=== PATIENT | male | born 1985 | race Two or more races ===

== ENCOUNTER 2020-08-12 11:33 | Emergency (ER) | payer SELFPAY ==
[~2020-08-12] VITALS: Ht 167.6 cm; Wt 64.0 kg
--- NOTE | 2020-08-12 11:35 | NUR ---
NA FROM [facility]
[2020-08-12 11:48] VITALS: BP 150/101
--- NOTE | 2020-08-12 12:32 | NUR ---
No answer when pt called for room from lobby.
--- NOTE | 2020-08-12 12:46 | NUR ---
No answer when pt called for room from lobby.
--- NOTE | 2020-08-12 13:12 | NUR ---
No answer when pt called for room from lobby.
== END 2020-08-12 13:13 | disposition left against medical advice (07) ==
LOC: ED 13:05
DX: Z53.21 Procedure and treatment not carried out due to patient leaving prior to being seen by health care provider (principal)